=== PATIENT | male | born 1985 | race Two or more races ===

== ENCOUNTER 2016-09-17 22:25 | Emergency (ER) | payer SELFPAY ==
[2016-09-17] MEDS ORDERED: IOPAMIDOL 300 (61%) 100 ML VIAL IV ONE (22:26)
[2016-09-17 23:57] LABS: ABSOLUTE NEUTROPHIL COUNT 12.7 K/mm3 (1.8-7.7); BASO # 0.1 K/mm3 (0.0-0.2); BASO % 0.3 % (0.2-1.0); EOS # 0.1 (0.0-0.5); EOS % 0.4 % (0.9-2.9); HEMATOCRIT 43.9 % (32.0-52.0); HEMOGLOBIN 14.9 gm/l (14.0-18.0); IMM NEUT # 0.1 K/mm3 (0-0.2); IMM NEUT% 0.6 % (0-1); LYMPH # 2.1 (1.0-4.8); LYMPH % 12.8 % (15-45); MEAN CELL VOLUME 90.7 fl (80.0-94.0); MEAN CORPUSCULAR HEMOGLOBIN 30.8 pg (27.0-31.0); MEAN CORPUSCULAR HGB CONC 33.9 g/dl (33.0-37.0); MEAN PLATELET VOLUME 10.3 fl (7.4-10.4); MONO # 1.2 (0.0-0.8); MONO % 7.1 % (4-12); NEUT % 78.8 % (43-75); PLATELET COUNT 357 K/mm3 (130-400); RED CELL DISTRIBUTION WIDTH 12.5 % (11.5-14.5)
[2016-09-17] MEDS ORDERED: DEXAMETHASONE SOD PHOS 10 MG/1 ML VIAL ONE (23:59)
[2016-09-17] MEDS ORDERED: PIPERACILLIN-TAZO PREMIX BAG 50 ML IV ONE (23:59)
[2016-09-18 00:05] LABS: ALB/GLOB RATIO 1.3 (>1.0); ALBUMIN 4.5 gm/dL (3.5-5.7); CALCIUM 9.4 mg/dL (8.6-10.3)
--- NOTE | 2016-09-18 08:58 | CT ---
NECK SOFT TISSUE W/ CON: 09/17/2016 11:38 PM CLINICAL INDICATION: Right tonsil swelling. COMPARISON: None. (MR) Sequences Performed: None (CT) Scan Technique: Contiguous axial 3 mm images from the AP window through the orbital meatal line are obtained after the uneventful IV ministration of contrast. Sagittal and coronal reformations were also obtained this time. Contrast: 80 ml of Isovue-300 contrast administered. FINDINGS: Orbits/Paranasal Sinuses/Skull Base: Normal Nasopharynx: Asymmetry to the right aspect of Waldeyer's ring is present. Suprahyoid Neck: Rim-enhancing fluid collection is identified in the right tonsillar pillar measuring approximately 1.9 x 1.7 cm on axial image 37. This has mass effect upon the tracheal air column shifting it to the left and making it rather slitlike. Extensive edema is noted in the carotid and parapharyngeal spaces extending into the submandibular and hypopharynx. More inferiorly the tracheal air column has a more normal appearance. Infrahyoid Neck: There is apposition of the vocal cords which may relate to formation or breath-hold during image acquisition. Thyroid: There may be a too small to characterize hypodensity along the inferior pole the left thyroid as seen on image 70. Thoracic Inlet: Focal area of airspace disease is noted within the right upper lobe distribution posteriorly. Findings are worrisome for small focus of pneumonia though focal atelectasis is possible. Lymph Nodes: Enlarged right retromandibular node is present on image 46 measuring 1.6 x 1.4 cm. Left jugulodigastric node measures 1.8 x 1.4 cm on axial image 43. Other smaller though prominent nodes are present. These are not enlarged by size criteria. Vascular Structures: Normal Other Findings: Osseous structures are intact. IMPRESSION: Right tonsillar abscess with mass effect upon the tracheal air column as above. Edema is noted throughout the peritonsillar and carotid space extending inferiorly. Adenopathy and other findings as above. Preliminary report was provided by [employer] at approximately 0030 hours on 09/18/2016.
== END 2016-09-18 00:58 | disposition home or self-care (01) ==
LOC: ED 22:25
DX: J36 Peritonsillar abscess (principal)
CPT/HCPCS: 85025; 80053; 87880; 70491; 96375; 99284 ×2; 42700 ×2; 96365; J1100; J2543; Q9967